=== PATIENT | female | born 1995 | race Asian ===

== ENCOUNTER 2024-09-25 14:25 | Emergency (ER) | payer MEDICAID, SELFPAY ==
[2024-09-25 14:35] VITALS: BP 128/83; PULSE 61; RESP 20; TEMP 37.2; O2SAT 100; BMI 23.3
--- NOTE | 2024-09-25 14:44 | XR_ITS ---
Examination: CT brain head without contrast. 2-D sagittal coronal reconstructions Date and time of exam:September 25, 2024 1459 hours INDICATIONS: Headache and syncopal left facet today CTDI: vol (mGy):48 DLP: (mGycm):971 Technique: Multiple CT axial sections of the brain have been obtained, 5 mm slice thickness. Contrast has not been administered. 2-D sagittal, coronal reconstructions have been obtained Low dose protocols were performed. One or more of the following dose reduction techniques were used; automated exposure control, adjustment of the mA and/or KV according to patient size, use of iterative reconstruction technique. Findings: No significant ventricular enlargement. Intra-axial or extra-axial hemorrhage density is not seen. No mass effect or midline shift Basal cisterns are not remarkable. Fourth ventricle is midline. Cranial vault intact. Impression: Negative for acute hemorrhage, mass effect or midline shift Advise clinical correlation follow-up accordingly
--- NOTE | 2024-09-25 14:44 | EKG_ITS ---
[facility] Test Date: 2024-09-25 Pat Name: FIDE PAINTER Department: Room: - Gender: Female Intr[employer]et Support: : 1995 Requested By: Avery Wooten (GLORIA) Order Number: [id number] Reading MD: Avery Wooten (HOSPICE ADMINISTRATOR) Measurements Intervals [place] Rate: 65 P: 59 ME: 166 QRS: 81 QRSD: 96 T: 35 QT: 409 QTc: 427 Interpretive Statements SINUS RHYTHM POSSIBLE RIGHT VENTRICULAR CONDUCTION DELAY [RSR (QR) IN V1/V2] No previous ECG available for comparison /[id number]/[email or web address]/[id number].pdf
--- NOTE | 2024-09-25 14:46 | PD.EDRME ---
Rapid Medical Screening Exam RME Arrival date/time: 09/25/24 14:25 29-year-old female presents to the emergency department today stating that she was at work today she reports that she hit her right knee and then had syncopal episode Chief Complaint: Syncope / Near Syncope Vital signs: Vital Signs Temperature 98.9 F 09/25/24 14:35 Pulse Rate 61 09/25/24 14:35 Respiratory Rate 20 09/25/24 14:35 Blood Pressure 128/83 09/25/24 14:35 Pulse Oximetry (%) 100 09/25/24 14:35 Oxygen Delivery Method Room Air 09/25/24 14:35
[2024-09-25 15:23] LABS: Basophils # (Auto) 0.1 Thou/mm3 (0.0-0.2); Basophils % (Auto) 1 % (0-2.5); Eosinophils # (Auto) 0.2 Thou/mm3 (0.0-0.5); Eosinophils % (Auto) 2 % (0-10); Hematocrit 36.5 % (36.0-46.0); Hemoglobin 12.7 g/dL (12.0-16.0); Immature Granulocytes Auto 0.02 Thou/mm3 (0.00-0.00); Lymphocytes # (Auto) 1.7 Thou/mm3 (1.0-4.8); Lymphocytes % (Auto) 26 % (10-50); Mean Corpuscular HGB Conc 34.8 g/dl (31.0-37.0); Mean Corpuscular Hemoglobin 29.3 pg (25.0-35.0); Mean Corpuscular Volume 84 fL (80-100); Monocytes # (Auto) 0.5 Thou/mm3 (0.0-0.8); Monocytes % (Auto) 8 % (0-12); Neutrophils # (Auto) 4.3 Thou/mm3 (1.8-7.7); Neutrophils % (Auto) 63 % (37-80); Nucleated Red Blood Cell # 0.00 Thou/mm3 (0.00-0.00); Nucleated Red Blood Cell % 0 /100 WBC (0); Platelet Count 188 Thou/mm3 (140-440); RDW Standard Deviation 37.4 fL (36.4-46.3); Red Blood Count 4.34 Miln/mm3 (4.00-5.20); White Blood Count 6.8 Thou/mm3 (3.6-11.0)
[2024-09-25 15:39] LABS: HCG,Qualitative Serum Negative
[2024-09-25 15:46] LABS: Alanine Aminotransferase 12 U/L (10-49); Albumin, Serum 4.5 gm/dL (3.5-5.0); Albumin/Globulin Ratio 1.6 (1.2-2.2); Alkaline Phosphatase 46 U/L (46-116); Anion Gap 9 (7-16); Aspartate Amino Transferase 19 U/L (0-34); BUN/Creatinine Ratio 10 Ratio (12-20); Bilirubin,Total 0.8 mg/dL (0.3-1.2); Blood Urea Nitrogen 7 mg/dL (9-23); Calcium 9.0 mg/dL (8.3-10.6); Calcium (Corrected) 9.0 mg/dL (8.5-10.1); Carbon Dioxide 25.9 mMol/L (20.0-31.0); Chloride 104 mMol/L (98-107); Creatinine (Component) 0.7 mg/dL (0.6-1.3); Estimated Creatinine Clearance 107.7 mL/min (>60); Globulin 2.8 gm/dL (2.3-3.5); Glucose 116 mg/dL (74-106); Osmolality,Calculated 276 (275-295); Potassium 3.5 mMol/L (3.4-5.1); Sodium 139 mMol/L (136-145); Total Protein 7.3 gm/dL (5.7-8.2); Troponin I < 0.002 ng/mL (0.0-0.045); eGFR > 60 See Note
--- NOTE | 2024-09-25 16:01 | EDNOTE_ITS ---
ED Syncope RME/HPI General Chief Complaint: Syncope / Near Syncope Stated Complaint: Syncope at work Time Seen by Provider: 09/25/24 16:01 Arrival date/time: 09/25/24 14:25 29-year-old female presents to the emergency department today stating that she was at work today she reports that she hit her right knee and then had syncopal episode Limitations: no limitations RME / HPI RME / HPI narrative: 09/25/24 14:25 29-year-old female presents to the emergency department today stating that she was at work today she reports that she hit her right knee and then had syncopal episode Related Data Previous Rx's ?Medication ?Instructions ?Recorded pantoprazole 40 mg tablet,delayed 40 mg PO QDAY #30 ta bs 03/13/23 release Allergies Allergy/AdvReac Type Severity Reaction Status Date / Time No Known Allergies Allergy Verified 09/25/24 14:32 Review of Systems Review of Systems Systems Reviewed: All systems reviewed, normal except as documented Constitutional Constitutional: Reports system reviewed and no additional complaints, except as documented, Denies fever(s) and Denies headache(s) Eyes Eyes: Reports system reviewed and no additional complaints, except as documented and Denies blurry vision ENT Ears, Nose, Mouth, and Throat: Reports system reviewed and no additional compl aints, except as documented, Denies headache(s), Denies nasal congestion and Denies nasal discharge Cardiovascular Cardiovascular: Reports system reviewed and no additional complaints, except as documented, Denies chest pain, Denies dyspnea and Reports syncope Respiratory Respiratory: Reports system reviewed and no additional complaints, except as documented, Denies chest congestion, Denies cough and Denies dyspnea Gastrointestinal Gastrointestinal: Reports system reviewed and no additional complaints, except as documented and Denies abdominal pain Musculoskeletal Musculoskeletal: Reports system reviewed and no additional complaints, except as documented, Denies abnormal gait and Reports arthralgias Integumentary/Breasts Skin/Breast: Reports system reviewed and no additional complaints, except as documented and Denies rash Neurologic Neurologic: Reports system reviewed and no additional complaints, except as documented, Reports as per HPI, Denies abnormal gait, Denies headache(s) and Reports syncope Past Medical History Social History SMOKING STATUS: Never smoker ED Exam General Limitations: Present no limitations General appearance: Present alert and in no apparent distress Head Head exam: Present atraumatic, normocephalic and normal inspection Eye Eye exam: Present normal appearance, PERRL and EOMI; Absent conjunctival injection ENT ENT exam: Present normal exam, normal oropharynx and mucous membranes moist Neck Neck exam: Present normal inspection, full ROM and trachea midline Chest Chest inspection: Present normal inspection and symmetric chest wall rise Respiratory Respiratory exam: Present normal lung sounds bilaterally; Absent respiratory distress, wheezes, stridor, accessory muscle use or prolonged expiratory phase Cardiovascular Cardiovascular exam: Present regular rate, normal rhythm and normal heart sounds; Absent bradycardia, tachycardia, irregular rhythm or systolic murmur Abdominal Exam Abdominal exam: Present soft and normal bowel sounds; Absent distention, tenderness, guarding, rebound or rigidity Extremities Exam Extremities exam: Present normal inspection and full ROM Back Exam Back exam: Present normal inspection and full ROM Neurological Exam Neurological exam: Present alert, oriented X3, CN II-XII intact, normal gait and reflexes normal; Absent motor sensory deficit Psychiatric Psychiatric exam: Present normal affect and normal mood Skin Skin exam: Present warm, dry, intact and normal color; Absent rash Course Quality Measures none Orders Category Date Time Status EKG (ED ONLY) *Do not use* NOW Care 09/25/24 14:[address] head/brain wo con Stat Exams 09/25/24 14:44 Completed EKG (ED Only) Stat Exams 09/25/24 14:44 Draft CBC Stat Lab 09/25/24 15:11 Completed Comprehensive Metabolic Panel Stat Lab 09/25/24 15:11 Completed HCG,Qualitative Serum Stat Lab 09/25/24 15:11 Completed Troponin I Stat Lab 09/25/24 15:11 Completed Vital Signs Vital signs: Vital Signs Temperature 98.9 F 09/25/24 14:35 Pulse Rate 61 09/25/24 14:35 Respiratory Rate 20 09/25/24 14:35 Blood Pressure 128/83 09/25/24 14:35 Pulse Oximetry (%) 100 09/25/24 14:35 Oxygen Delivery Method Room Air 09/25/24 14:35 O2 saturation 100% room air within normal limits PROCEDURES: EKG Interpretation #1: Date of EK09/25/24 Time of EK:47 Rate: 65 Interpretation: Interpreted by me EKG Impression: Normal sinus rhythm, No acute ST-T changes, No ectopy, No ischemic changes, Normal QRS, Normal intervals and Normal axis Syncope MDM Narrative MDM Narrative:: 29-year-old female presents to the emergency department today stating that she was at work today she reports that she hit her right knee and then had syncopal episode On exam patient well-appearing patient does not appear toxic no acute distress CT scan of the head obtained no acute emergent findings noted EKG obtained within normal limits Lab work obtained no acute emergent findings noted troponin is negative Patient walks with steady gait and has no abnormal neurological findings Symptoms consistent with vasovagal syncope Patient discharged home in no distress to follow-up with primary care doctor in the next 24 to 48 hours and for any worsening symptoms to return to the ER immediately Patient data External records reviewed:: [facility] previous records Clinical information provided by:: patient Social determinants that could affect healthcare access:: none Patient has the following chronic illnesses:: None How is presenting disease/condition affected by chronic disease/condition?: no chronic disease Evaluation data The following diagnostics were reviewed and interpreted by me:: lab results, radiology exam(s) and EKG tracing(s) Lab and/or radiology exams considered but not ordered:: Labs, radiology, EKG obtained Interpretation Summary: Reviewed by me Medications / Prescriptions Medications or Prescriptions considered but not ordered:: No med Medication administrations:: No med Consultations Consultation(s) initiated? (list below): No Diagnosis Syncope Differential Diagnosis: syncope due to orthostatic hypotension, vasovagal syncope and dehydration Most likely diagnosis given after review of the tests above:: Syncopal episode Admission Indicated Admission indicated?: not indicated Admission Request Was there a request for admission?: No Disposition Plan Disposition Plan: Discharge Discharge Attestation Discharge Attestation: The patient and all family members were given an opportunity to ask questions and understood the discharge instructions. Discharge instructions specifically effects, indications for sooner follow up or return to the emergency department, and the expected course of current diagnosis. Patient condition: Stable Discharge Plan Plan Patient Disposition: HOME (Self Care) Discharge Disposition comment: stable Prescriptions/Referrals Prescriptions/Med Rec: No Action pantoprazole 40 mg tablet,delayed release (DR/EC) 40 mg PO QDAY Qty: 30 0RF Referrals: Héctor Gray MD [Primary Care Provider] - 09/26/24 Problem List Clinical Impression: Vasovagal syncope Patient/Caregiver Discharge Instructions Additional Instructions: Please follow up with your primary care doctor in the next 24-48hrs for any worsening symptoms return here immediately Print Language: Bengali Stand Alone Forms: Angelina Award Info., Work/School Release, Patient Portal Info Letter PA/MALE IMPERSONATOR Supervising Physician PA/MALE IMPERSONATOR Supervising Physician: Dr [email or web address]
== END 2024-09-25 16:18 | disposition home or self-care (01) ==
PROVIDERS: Nurse Practitioner Primary Care; Emergency Provider Emergency Medicine; PCP Family Medicine
DX: R55 Syncope and collapse (principal)
CPT/HCPCS: 36415; 70450; 80053; 84484; 84703; 85025; 93005; 99283

== ENCOUNTER 2024-10-03 11:38 | Outpatient (RCR) | payer MEDICAID, SELFPAY ==
[2024-10-03 12:28] LABS: HCG Qualitative,Urine Negative
--- NOTE | 2024-10-03 12:30 | XR_ITS ---
Examination: HIDA, hepatobiliary radioisotope scan Gallbladder ejection fraction study. Date and time of exam: October 03, 2024 1240 hours INDICATIONS: Epigastric pain and heartburn months Technique: 5.8 mCi of 99M Hepatolite administered. Serial imaging then obtained from immediate through 60 minutes. 1.3 mcg selective catheter Kinevac administered for gallbladder ejection fraction study. Findings: Radioisotope activity within the liver is reasonably homogenous. Gallbladder, common bile duct small bowel activity noted Impression: Comment bladder activity Abnormal gallbladder ejection fraction 18% normal greater than 35%
== END 2024-10-08 23:59 | disposition home or self-care (01) ==
LOC: SNUC 11:38
PROVIDERS: PCP Family Medicine; Referring Provider Internal Medicine Gastroenterology; Visit Provider Internal Medicine Gastroenterology
DX: R93.2 Abnormal findings on diagnostic imaging of liver and biliary tract (principal); Z32.00 Encounter for pregnancy test, result unknown
CPT/HCPCS: 78227; 81025; A9537; J2805